=== PATIENT | male | born 1945 | race Hispanic/Latino ===

== ENCOUNTER 2022-09-15 20:31 | Emergency (ER) | payer OTHER ==
[~2022-09-15] VITALS: Ht 170.2 cm; Wt 94.8 kg
[2022-09-15 20:51] VITALS: BP 134/67
[2022-09-15] MEDS ORDERED: ACETAMINOPHEN 325 MG TAB PO ONE (21:30)
[2022-09-15 21:34] LABS: APPEARANCE,URINE CLEAR (CLEAR); BILIRUBIN,URINE NEGATIVE (NEGATIVE); COLOR,URINE YELLOW (YELLOW); GLUCOSE, URINE (UA) NEGATIVE (NEGATIVE); KETONES,URINE 5 mg/dL (NEGATIVE); LEUKOCYTE ESTERASE ,URINE NEGATIVE Leu/uL (NEGATIVE); NITRATE,URINE NEGATIVE (NEGATIVE); OCCULT BLOOD,URINE NEGATIVE (NEGATIVE); PROTEIN,URINE 30 mg/dL (NEGATIVE); UROBILINOGEN,URINE 0.2 mg/dL (0.2-1.0)
[2022-09-15 21:36] LABS: SQUAMOUS EPITHELIAL CELL,UR RARE /HPF (0-2)
[2022-09-15 21:52] LABS: BASOPHILS % (AUTO) 0.4 % (0.0-5.0); EOSINOPHILS % (AUTO) 0.1 % (0.0-8.0); HEMATOCRIT 39.7 % (42-54); LYMPHOCYTES % (AUTO) 16.6 % (21.0-51.0); MEAN CORPUSCULAR HEMOGLOBIN 27.9 pg (27.0-33.0); MEAN CORPUSCULAR HGB CONC 33.8 g/dL (32.0-36.0); MEAN CORPUSCULAR VOLUME 82.7 fL (79-99); MONOCYTES % (AUTO) 10.7 % (3.0-13.0); NEUTROPHILS % (AUTO) 71.5 % (40.0-77.0); PLATELET COUNT (AUTO) 215 K/uL (130-400); RED CELL DISTRIBUTION WIDTH 14.8 % (11.0-15.5); WHITE BLOOD COUNT (AUTO) 10.5 K/uL (4.8-10.8)
[2022-09-15 22:05] LABS: POTASSIUM 3.8 mmol/L (3.5-5.1)
[2022-09-15 22:12] LABS: ALBUMIN 3.2 g/dL (3.5-5.0); TOTAL PROTEIN, SERUM 6.9 g/dL (6.0-8.3)
[2022-09-16] MEDS ORDERED: IBUP-2070 PO (01:11)
== END 2022-09-16 01:51 | disposition home or self-care (01) ==
LOC: EDH 20:31
DX: B34.9 Viral infection, unspecified (principal); Z20.822 Contact with and (suspected) exposure to COVID-19
CPT/HCPCS: 99284; 87635; 84484; 80053; 83690; 85025; 87040 ×2; 87804 ×2; 83605; 81001; 36415; 93005; C9803

== ENCOUNTER 2022-09-18 00:33 | Emergency (ER) | payer OTHER ==
[~2022-09-18] VITALS: Ht 177.8 cm; Wt 95.7 kg
[~2022-09-18 00:33] MED LIST: IBUP-2070 PO
[2022-09-18] MEDS ORDERED: 0.9%NACL 1000ML 1,000 ML IV ONE (01:00)
[2022-09-18] MEDS ORDERED: ONDANSETRON 4MG INJ IVP ONE (01:00)
[2022-09-18 01:13] LABS: BASOPHILS % (AUTO) 0.2 % (0.0-5.0); EOSINOPHILS % (AUTO) 0.2 % (0.0-8.0); HEMATOCRIT 36.9 % (42-54); LYMPHOCYTES % (AUTO) 9.4 % (21.0-51.0); MEAN CORPUSCULAR HEMOGLOBIN 27.9 pg (27.0-33.0); MEAN CORPUSCULAR HGB CONC 33.6 g/dL (32.0-36.0); MEAN CORPUSCULAR VOLUME 83.1 fL (79-99); MONOCYTES % (AUTO) 11.6 % (3.0-13.0); PLATELET COUNT (AUTO) 214 K/uL (130-400); RED BLOOD CELL COUNT(AUTO) 4.44 MIL/uL (4.50-6.20); RED CELL DISTRIBUTION WIDTH 14.5 % (11.0-15.5); WHITE BLOOD COUNT (AUTO) 14.5 K/uL (4.8-10.8)
[2022-09-18 01:24] LABS: SODIUM SERUM 132 mmol/L (136-145)
[2022-09-18 01:27] LABS: CARBON DIOXIDE 30 mmol/L (21-32); CHLORIDE 95 mmol/L (101-111); CREATININE 0.8 mg/dL (0.5-1.5); GLOMERULAR FILTR. RATE CALC 100 mL/min (>60); GLUCOSE,RANDOM 147 mg/dL (70-105); POTASSIUM 3.5 mmol/L (3.5-5.1); UREA NITROGEN, BLOOD 14 mg/dL (7-18)
[2022-09-18 01:28] LABS: ALANINE AMINOTRANSFERASE 258 U/L (12-78); ALBUMIN 3.1 g/dL (3.5-5.0); ASPARTATE AMINOTRANSFERASE 189 U/L (10-37); TOTAL PROTEIN, SERUM 6.8 g/dL (6.0-8.3)
[2022-09-18 01:30] LABS: LIPASE < 50 U/L (114-286)
[2022-09-18] MEDS ORDERED: MORPHINE 4 MG SYG ONE (01:34)
[2022-09-18] MEDS ORDERED: MORPHINE 4 MG SYG IVP ONE ×2 (02:00→03:00)
[2022-09-18] MEDS ORDERED: DiphenhydrAMINE HCL 50 MG/ML VIAL ONE (02:48)
[2022-09-18] MEDS ORDERED: LORAZEPAM 2 MG/ML 1 ML VIAL ONE (02:59)
[2022-09-18] MEDS ORDERED: DiphenhydrAMINE HCL 50 MG/ML VIAL IV ONE (03:00)
[2022-09-18] MEDS ORDERED: LORAZEPAM 2 MG/ML 1 ML VIAL IVP ONE (03:30)
[2022-09-18 04:30] VITALS: BP 138/60
[2022-09-18] MEDS ORDERED: CIPROFLOXACIN HCL 500 MG TABLET ONE (04:48)
[2022-09-18] MEDS ORDERED: HYOS0.124 SL (04:54)
[2022-09-18] MEDS ORDERED: CIPR-278 PO (04:54)
== END 2022-09-18 05:05 | disposition home or self-care (01) ==
LOC: EDH 00:33
DX: K50.00 Crohn's disease of small intestine without complications (principal); Z90.49 Acquired absence of other specified parts of digestive tract; Z79.1 Long term (current) use of non-steroidal anti-inflammatories (NSAID)
CPT/HCPCS: 99285; 74176; 96374; 96361; 96375; 76705; 84484; 80053; 82140; 83690; 85025; 36415; 96376; 93005; J1200; J7030; J2405; J2060; J2270 ×2

== ENCOUNTER 2022-09-19 19:00 | Inpatient (IN) | payer OTHER ==
[~2022-09-19] VITALS: Ht 177.8 cm; Wt 100.9 kg
[~2022-09-19 19:00] MED LIST changes: +CIPR-278 PO; +HYOS0.124 SL
[2022-09-19] MEDS ORDERED: MORPHINE 4 MG SYG IVP ONE (20:00)
[2022-09-19] MEDS ORDERED: 0.9%NACL 1000ML 1,000 ML IV ONE (20:00)
[2022-09-19] MEDS ORDERED: ONDANSETRON 4MG INJ IVP ONE (20:00)
[2022-09-19] MEDS ORDERED: BISACODYL 10 MG SUPP.RECT RC ONE (20:00)
[2022-09-19 20:05] LABS: APPEARANCE,URINE CLOUDY (CLEAR); BILIRUBIN,URINE 2 mg/dL (NEGATIVE); COLOR,URINE DARK-YELLOW (YELLOW); GLUCOSE, URINE (UA) NEGATIVE (NEGATIVE); KETONES,URINE 5 mg/dL (NEGATIVE); LEUKOCYTE ESTERASE ,URINE NEGATIVE Leu/uL (NEGATIVE); NITRATE,URINE NEGATIVE (NEGATIVE); OCCULT BLOOD,URINE NEGATIVE (NEGATIVE); PH,URINE 5.5 (5.0-8.0); PROTEIN,URINE 50 mg/dL (NEGATIVE); UROBILINOGEN,URINE 0.2 mg/dL (0.2-1.0)
[2022-09-19 20:13] LABS: CREATININE 1.8 mg/dL (0.5-1.5); POTASSIUM 3.7 mmol/L (3.5-5.1)
[2022-09-19 20:14] LABS: BASOPHILS % (AUTO) 0.3 % (0.0-5.0); EOSINOPHILS % (AUTO) 0.7 % (0.0-8.0); HEMATOCRIT 35.1 % (42-54); LYMPHOCYTES % (AUTO) 14.6 % (21.0-51.0); MEAN CORPUSCULAR HEMOGLOBIN 28.2 pg (27.0-33.0); MEAN CORPUSCULAR HGB CONC 33.6 g/dL (32.0-36.0); MONOCYTES % (AUTO) 7.9 % (3.0-13.0); NEUTROPHILS % (AUTO) 75.6 % (40.0-77.0); PLATELET COUNT (AUTO) 191 K/uL (130-400); RED BLOOD CELL COUNT(AUTO) 4.18 MIL/uL (4.50-6.20); RED CELL DISTRIBUTION WIDTH 14.9 % (11.0-15.5); WHITE BLOOD COUNT (AUTO) 17.1 K/uL (4.8-10.8)
[2022-09-19 20:20] LABS: BACTERIA,URINE RARE /HPF (None Seen); MUCUS,URINE RARE LPF (None Seen); SQUAMOUS EPITHELIAL CELL,UR MOD /HPF (0-2)
[2022-09-19 20:22] LABS: ALBUMIN 2.6 g/dL (3.5-5.0); TOTAL PROTEIN, SERUM 6.2 g/dL (6.0-8.3)
[2022-09-19] MEDS ORDERED: ZOSYN 3.375GM +NS 50ML IV ONE (21:00)
[2022-09-19] MEDS ORDERED: ASPIRIN 81MG CHEW TAB PO ONE (21:30)
[2022-09-19] MEDS ORDERED: KETOROLAC 15MG/ML VIAL (15MG/ML) IV ONE (21:30)
[2022-09-19] MEDS ORDERED: ACETAMINOPHEN 325 MG TAB PO PRN (22:00)
[2022-09-19] MEDS ORDERED: ONDANSETRON 4MG INJ IV PRN (22:00)
[2022-09-19] MEDS ORDERED: MORPHINE 2 MG SYG IV PRN (22:00)
[2022-09-19] MEDS ORDERED: MORPHINE 4 MG SYG IV PRN (22:00)
[2022-09-19] MEDS: NITROGLYCERIN 1GM OINT 1 INCH/1GM TD SCH (22:00)
[2022-09-19] MEDS: LACTATED RINGERS 1000ML 1,000 ML IV SCH (22:22)
[2022-09-20 01:20] VITALS: BP 140/66
[2022-09-20 04:35] VITALS: BP 116/58
[2022-09-20] MEDS: ZOSYN 3.375GM+NS 50ML 50 ML IV SCH ×3 (04:58→21:29)
[2022-09-20] MEDS: NITROGLYCERIN 1GM OINT 1 INCH/1GM TD SCH ×3 (06:00→21:30)
[2022-09-20 06:04] LABS: BASOPHILS % (AUTO) 0.4 % (0.0-5.0); EOSINOPHILS % (AUTO) 1.1 % (0.0-8.0); HEMATOCRIT 33.1 % (42-54); LYMPHOCYTES % (AUTO) 18.7 % (21.0-51.0); MEAN CORPUSCULAR HEMOGLOBIN 28.1 pg (27.0-33.0); MEAN CORPUSCULAR HGB CONC 32.9 g/dL (32.0-36.0); MEAN CORPUSCULAR VOLUME 85.3 fL (79-99); MONOCYTES % (AUTO) 9.7 % (3.0-13.0); PLATELET COUNT (AUTO) 180 K/uL (130-400); RED BLOOD CELL COUNT(AUTO) 3.88 MIL/uL (4.50-6.20); RED CELL DISTRIBUTION WIDTH 15.1 % (11.0-15.5); WHITE BLOOD COUNT (AUTO) 11.4 K/uL (4.8-10.8)
[2022-09-20 06:14] LABS: INR 0.98 (0.85-1.15); PROTHROMBIN TIME 10.7 SEC (9.6-11.6)
[2022-09-20 06:16] LABS: CREATININE 1.5 mg/dL (0.5-1.5); MAGNESIUM 2.3 mg/dL (1.80-2.40); PHOSPHORUS 3.7 mg/dL (2.5-4.9); POTASSIUM 4.3 mmol/L (3.5-5.1)
[2022-09-20 08:00] VITALS: BP 117/63
[2022-09-20] MEDS: FAMOTIDINE 20MG VIAL IV SCH (09:41)
[2022-09-20] MEDS: ENOXAPARIN SODIUM 40 MG/0.4 ML SYRINGE SQ SCH (09:41)
[2022-09-20] MEDS: ASPIRIN 81MG CHEW TAB PO SCH (09:41)
[2022-09-20 10:21] LABS: ALBUMIN 2.4 g/dL (3.5-5.0); BILIRUBIN,DIRECT 2.3 mg/dL (0.0-0.3); TOTAL PROTEIN, SERUM 5.8 g/dL (6.0-8.3)
[2022-09-20] MEDS ORDERED: VANCOMYCIN PROTOCOL PER PHARMACY IV SCH (11:00)
[2022-09-20] MEDS ORDERED: COMPOUND IV REFRIGERATED 1 EACH IVSOLN MISC PRN (11:30)
[2022-09-20 12:00] VITALS: BP 138/76
[2022-09-20] MEDS: VANCOMYCIN 1.5 GM/250 ML BAG 250 ML IV SCH (12:25)
[2022-09-20] MEDS: LACTATED RINGERS 1000ML 1,000 ML IV SCH (14:35)
[2022-09-20 16:00] VITALS: BP 143/76
[2022-09-20 20:29] VITALS: BP 148/70
[2022-09-20] MEDS: TRAZODONE HCL 50 MG TAB PO PRN (21:29)
[2022-09-21 00:03] VITALS: BP 140/72
[2022-09-21 04:03] VITALS: BP 131/73
[2022-09-21] MEDS: ZOSYN 3.375GM+NS 50ML 50 ML IV SCH ×3 (04:52→20:53)
[2022-09-21 05:18] LABS: HEMATOCRIT 33.1 % (42-54); MEAN CORPUSCULAR HEMOGLOBIN 27.8 pg (27.0-33.0); MEAN CORPUSCULAR HGB CONC 33.2 g/dL (32.0-36.0); MEAN CORPUSCULAR VOLUME 83.8 fL (79-99); RED BLOOD CELL COUNT(AUTO) 3.95 MIL/uL (4.50-6.20); RED CELL DISTRIBUTION WIDTH 14.6 % (11.0-15.5)
[2022-09-21 05:27] LABS: ALBUMIN 2.2 g/dL (3.5-5.0); CREATININE 1.2 mg/dL (0.5-1.5); POTASSIUM 3.8 mmol/L (3.5-5.1); TOTAL PROTEIN, SERUM 5.7 g/dL (6.0-8.3)
[2022-09-21] MEDS: NITROGLYCERIN 1GM OINT 1 INCH/1GM TD SCH ×3 (05:56→20:54)
[2022-09-21 08:00] VITALS: BP 146/73
[2022-09-21] MEDS: FAMOTIDINE 20MG VIAL IV SCH (08:42)
[2022-09-21] MEDS: ASPIRIN 81MG CHEW TAB PO SCH (09:00)
[2022-09-21] MEDS: ENOXAPARIN SODIUM 40 MG/0.4 ML SYRINGE SQ SCH (09:00)
[2022-09-21 12:00] VITALS: BP 146/69
[2022-09-21] MEDS: VANCOMYCIN 1.5 GM/250 ML BAG 250 ML IV SCH (12:09)
[2022-09-21 16:00] VITALS: BP 150/72
[2022-09-21] MEDS ORDERED: METOPROLOL TARTRATE 1 MG/ML 5ML VIAL IV SCH (18:00)
[2022-09-21] MEDS ORDERED: IOHEXOL 350 MG/ML 100ML INFUS..BTL IV ONE (20:32)
[2022-09-21] MEDS: TRAZODONE HCL 50 MG TAB PO PRN (20:53)
[2022-09-21] MEDS: ACETYLCYSTEINE 600 MG CAPSULE PO SCH (20:53)
[2022-09-21] MEDS: 0.9%NACL 1000ML 1,000 ML IV SCH (20:54)
[2022-09-21 21:05] VITALS: BP 155/80
[2022-09-22] VITALS (14 sets, daily range): BP systolic 115–168; BP diastolic 71–84
[2022-09-22] MEDS: ZOSYN 3.375GM+NS 50ML 50 ML IV SCH ×3 (04:20→20:48)
[2022-09-22 04:53] LABS: HEMATOCRIT 31.9 % (42-54); MEAN CORPUSCULAR HEMOGLOBIN 27.6 pg (27.0-33.0); MEAN CORPUSCULAR HGB CONC 33.9 g/dL (32.0-36.0); MEAN CORPUSCULAR VOLUME 81.4 fL (79-99); RED BLOOD CELL COUNT(AUTO) 3.92 MIL/uL (4.50-6.20); RED CELL DISTRIBUTION WIDTH 14.9 % (11.0-15.5); WHITE BLOOD COUNT (AUTO) 9.2 K/uL (4.8-10.8)
[2022-09-22 05:09] LABS: ALBUMIN 2.2 g/dL (3.5-5.0); CREATININE 1.1 mg/dL (0.5-1.5); POTASSIUM 3.7 mmol/L (3.5-5.1); TOTAL PROTEIN, SERUM 5.5 g/dL (6.0-8.3)
[2022-09-22] MEDS: ACETYLCYSTEINE 600 MG CAPSULE PO SCH ×3 (05:43→22:52)
[2022-09-22] MEDS: NITROGLYCERIN 1GM OINT 1 INCH/1GM TD SCH ×3 (05:44→22:54)
[2022-09-22] MEDS: ENOXAPARIN SODIUM 40 MG/0.4 ML SYRINGE SQ SCH (09:00)
[2022-09-22] MEDS: ASPIRIN 81MG CHEW TAB PO SCH (09:00)
[2022-09-22] MEDS: FAMOTIDINE 20MG VIAL IV SCH (09:00)
[2022-09-22] MEDS ORDERED: IOHEXOL-350 50ML VIAL IV ONE (09:11)
[2022-09-22] MEDS ORDERED: PROPOFOL 10 MG/ML 20ML VIAL IV ONE (10:03)
[2022-09-22] MEDS ORDERED: FENTANYL CITRATE PF 50 MCG/1 ML 2ML VIAL ONE (10:04)
[2022-09-22] MEDS ORDERED: LIDOCAINE PF 100MG/5ML (2%) SYRINGE 5ML ONE (10:05)
[2022-09-22] MEDS ORDERED: SUCCINYLCHOLINE 200MG/10ML SYR ONE (10:06)
[2022-09-22] MEDS ORDERED: GLYCOPYRROLATE 0.2 MG/ML 5 ML VIAL ONE (10:06)
[2022-09-22] MEDS ORDERED: EPHEDRINE SULFATE 50 MG/ML AMPULE ONE (10:08)
[2022-09-22] MEDS ORDERED: MIDAZOLAM HCL 1 MG/ML 2ML VIAL ONE (11:26)
[2022-09-22] MEDS: VANCOMYCIN 1.5 GM/250 ML BAG 250 ML IV SCH (14:17)
[2022-09-22] MEDS ORDERED: PHENOL 177 ML BOTTLE PO PRN (15:00)
[2022-09-22] MEDS: 0.9%NACL 1000ML 1,000 ML IV SCH (17:52)
[2022-09-22] MEDS ORDERED: METOPROLOL TARTRATE 1 MG/ML 5ML VIAL IV ONE (18:00)
[2022-09-22] MEDS: METOPROLOL TARTRATE 25 MG TAB PO SCH (20:45)
[2022-09-22] MEDS: TRAZODONE HCL 50 MG TAB PO PRN (22:54)
[2022-09-23] MEDS ORDERED: IBUP-2070 PO (02:17)
[2022-09-23] MEDS ORDERED: HYOS-27 SL (02:17)
[2022-09-23 04:17] VITALS: BP 146/66
[2022-09-23] MEDS: ZOSYN 3.375GM+NS 50ML 50 ML IV SCH (04:56)
[2022-09-23 05:05] LABS: EOSINOPHILS % (AUTO) 1.9 % (0.0-8.0); HEMATOCRIT 31.7 % (42-54); LYMPHOCYTES % (AUTO) 35.5 % (21.0-51.0); MEAN CORPUSCULAR HGB CONC 33.4 g/dL (32.0-36.0); MEAN CORPUSCULAR VOLUME 83.9 fL (79-99); MONOCYTES % (AUTO) 12.3 % (3.0-13.0); NEUTROPHILS % (AUTO) 43.6 % (40.0-77.0); PLATELET COUNT (AUTO) 271 K/uL (130-400); RED BLOOD CELL COUNT(AUTO) 3.78 MIL/uL (4.50-6.20); RED CELL DISTRIBUTION WIDTH 14.8 % (11.0-15.5); WHITE BLOOD COUNT (AUTO) 9.4 K/uL (4.8-10.8)
[2022-09-23 05:38] LABS: ALBUMIN 2.1 g/dL (3.5-5.0); BILIRUBIN,DIRECT 0.5 mg/dL (0.0-0.3); CREATININE 1.1 mg/dL (0.5-1.5); POTASSIUM 3.5 mmol/L (3.5-5.1); TOTAL PROTEIN, SERUM 5.4 g/dL (6.0-8.3)
[2022-09-23] MEDS: ACETYLCYSTEINE 600 MG CAPSULE PO SCH (06:18)
[2022-09-23] MEDS: NITROGLYCERIN 1GM OINT 1 INCH/1GM TD SCH (06:19)
[2022-09-23 07:40] VITALS: BP 153/73
[2022-09-23] MEDS: FAMOTIDINE 20MG VIAL IV SCH (08:40)
[2022-09-23] MEDS: ASPIRIN 81MG CHEW TAB PO SCH (08:40)
[2022-09-23] MEDS: ENOXAPARIN SODIUM 40 MG/0.4 ML SYRINGE SQ SCH (08:41)
[2022-09-23] MEDS: METOPROLOL TARTRATE 25 MG TAB PO SCH (08:47)
[2022-09-23 11:10] VITALS: BP 145/70
== END 2022-09-23 12:10 | disposition home or self-care (01) | DRG 444 ==
LOC: EDH 19:00 → EDHIP 21:37 → 3BH 09-20 01:03
PROVIDERS: ADMIT Internal Medicine; ATTEND Internal Medicine
PROC: 0FC98ZZ Extirpation of Matter from Common Bile Duct, Via Natural or Artificial Opening Endoscopic (ICD-10-PCS; principal; 2022-09-22)
PROC: BF131ZZ Fluoroscopy of Gallbladder and Bile Ducts using Low Osmolar Contrast (ICD-10-PCS; 2022-09-22)
DX: K80.31 Calculus of bile duct with cholangitis, unspecified, with obstruction (principal); I21.A1 Myocardial infarction type 2; N17.9 Acute kidney failure, unspecified; Z20.822 Contact with and (suspected) exposure to COVID-19; K76.0 Fatty (change of) liver, not elsewhere classified
CPT/HCPCS: 36415; 43262; 43264; 71270; 74181; 74330; 76705; 80048; 80053; 80076; 81001; 82948; 83605; 83690; 83735; 84100; 84145; 84484; 85025; 85027; 85378; 85610; 85730; 86850; 86900; 86901; 87040; 87088; 87635; 93005; 93306; 96361; 96374; 96375; A4606; C1769; G0378; J0330; J1650; J1885; J2001; J2250; J2270; J2405; J2543; J2704; J3010; J3490; J7030; J7120; Q9967